=== PATIENT | female | born 1965 | race African-American/Black ===

== ENCOUNTER 2022-02-27 16:52 | Inpatient (IN) | payer MEDICAID, MEDICARE ==
[2022-02-27 17:44] LABS: #Lymphocytes 1.8 thou/uL (1.20-3.40); #Monocytes 0.7 thou/uL (0.11-0.59); #Neutrophils 3.3 thou/uL (1.40-6.50); %Basophils 0.7 % (0.0-1.0); %Eosinophils 0.1 % (0.0-10.0); %Lymphocytes 31.2 % (21.0-51.0); %Monocytes 11.7 % (0.0-10.0); %Neutrophils 56.3 % (42.0-75.0); Hemoglobin 11.1 g/dL (12.0-16.0); Mean Corpuscular HGB CONC 32.1 g/dL (32.0-36.0); Mean Corpuscular Hemoglobin 29.8 pg (27.0-31.0); Mean Corpuscular Volume 92.9 fL (78.0-98.0); Mean Platelet Volume 7.7 fL (7.4-10.4); Platelet Count 317 thou/uL (130-400); RBC Distribution Width 13.1 % (11.5-14.5); Red Blood Cell (RBC) Count 3.73 mill/uL (4.20-5.40); White Blood Cell (WBC) Count 5.8 thou/uL (4.8-10.8)
[2022-02-27 18:07] LABS: ALT (SGPT) 10 U/L (8-55); AST (SGOT) 14 U/L (5-34); Albumin 3.6 g/dL (3.5-5.0); Alkaline Phosphatase 113 U/L (40-110); Anion Gap 14 mmol/L (10-20); BUN (Urea Nitrogen) 13 mg/dL (9.8-20.1); Bilirubin, Total 0.4 mg/dL (0.2-1.2); Calc. Creatinine Clearance 0 mL/min (70-130); Calcium 8.4 mg/dL (7.8-10.44); Carbon Dioxide 21 mmol/L (22-29); Chloride 107 mmol/L (98-107); Globulin 2.8 g/dL (2.4-3.5); Glucose 176 mg/dL (70-105); Lipase 31 U/L (8-78); Potassium 4.1 mmol/L (3.5-5.1); Protein, Total 6.4 g/dL (6.0-8.3); Sodium 138 mmol/L (136-145)
[2022-02-27] MEDS ORDERED: Aspirin Chewable 81 MG TAB ONE (18:10)
[2022-02-27] MEDS ORDERED: Nitroglycerin 0.4 MG TAB 1 EACH ONE (18:10)
[2022-02-27] MEDS ORDERED: Nitroglycerin 0.4 MG TAB (25 Tab Bottle) SL PRN (20:30)
[2022-02-27] MEDS ORDERED: Enoxaparin Sodium 40 MG/0.4 ML SYRINGE SC SCH (20:30)
[2022-02-27] MEDS ORDERED: Dextrose 50% Abboject 50 ML SYRINGE SLOW IVP PRN (20:37)
[2022-02-27] MEDS ORDERED: Dextrose 5% in Water 1,000 ML IV PRN (20:37)
[2022-02-27] MEDS ORDERED: HumaLOG 300 UNITS/3 ML VIAL SC PRN ×2 (20:37)
[2022-02-27] MEDS ORDERED: Lidocaine 2% Viscous Solution 10 ML, Aluminum & Magnesium Hydroxide 30 ML SSW SCH (21:00)
[2022-02-27 21:14] VITALS: BMI 35.5
[2022-02-27 21:20] LABS: Troponin I Less than 0.010 ng/mL (< 0.028)
[2022-02-27] MEDS ORDERED: Insulin Glargine 30 UNITS/0.3 ML VIAL SC SCH (22:45)
[2022-02-27] MEDS ORDERED: Nitroglycerin 0.4 MG TAB (25 Tab Bottle) SL SCH (22:45)
[2022-02-27] MEDS ORDERED: Albuterol Sulfate 2.5 mg/3 ml Neb NEB PRN (22:48)
[2022-02-28 00:05] LABS: Troponin I Less than 0.010 ng/mL (< 0.028)
[2022-02-28 00:56] LABS: SARS-CoV-2 PCR by NAA Not Detected (NotDetected)
[2022-02-28 01:23] LABS: Bilirubin Negative (Negative); Blood, Urine Negative (Negative); Clarity Clear (Clear); Glucose, Urine (Dipstick) Normal (Negative); Ketone, Urine Negative (Negative); Leukocyte Negative Leu/uL (Negative); Nitrite Negative (Negative); Protein, Urine (Dipstick) Negative (Neg-Trace); Specific Gravity, Urine 1.019 (1.002-1.036); Urobilinogen Normal mg/dL (Less than 2)
[2022-02-28] MEDS: Acetaminophen 325 MG TAB PO PRN ×2 (02:26→18:08)
[2022-02-28 05:11] LABS: Hemoglobin A1c 6.3 % (4.0-6.0)
[2022-02-28 05:20] LABS: Cardiac Risk 2.6 (Less than 4.5)
[2022-02-28] MEDS: Mometasone 100 MCG/Formoterol 5 MCG 120 PUFF INHALER INH SCH ×2 (07:20→18:18)
[2022-02-28] MEDS ORDERED: Regadenoson 0.4 MG/5 ML SYRINGE ONE (08:41)
[2022-02-28] MEDS: Potassium Chloride 10 MEQ TAB PO SCH (09:17)
[2022-02-28] MEDS: Atorvastatin Calcium 40 MG TAB PO SCH (09:17)
[2022-02-28] MEDS: Losartan 25 MG TAB PO SCH (09:18)
[2022-02-28] MEDS: HumaLOG 300 UNITS/3 ML VIAL SC SCH ×3 (09:18→18:09)
[2022-02-28] MEDS: Aspirin 81 mg Enteric Coated Tablet PO SCH (09:18)
[2022-02-28] MEDS: Sucralfate 1 GM TAB PO SCH ×4 (09:18→21:16)
[2022-02-28] MEDS: Fluticasone Propionate Nasal Spray 16 gm Bottle NASAL SCH (09:18)
[2022-02-28] MEDS: Enoxaparin Sodium 40 MG/0.4 ML SYRINGE SC SCH (21:15)
[2022-02-28] MEDS: Insulin Glargine 30 UNITS/0.3 ML VIAL SC SCH (21:15)
[2022-03-01] MEDS: Mometasone 100 MCG/Formoterol 5 MCG 120 PUFF INHALER INH SCH ×2 (07:27→19:03)
[2022-03-01] MEDS ORDERED: Acetaminophen 500 MG TAB PO SCH (08:00)
[2022-03-01 09:52] LABS: ALT (SGPT) 11 U/L (8-55); AST (SGOT) 14 U/L (5-34); Alkaline Phosphatase 124 U/L (40-110); Anion Gap 14 mmol/L (10-20); BUN (Urea Nitrogen) 8 mg/dL (9.8-20.1); Bilirubin, Total 0.6 mg/dL (0.2-1.2); Calc. Creatinine Clearance 110 mL/min (70-130); Calcium 9.4 mg/dL (7.8-10.44); Carbon Dioxide 24 mmol/L (22-29); Chloride 106 mmol/L (98-107); Globulin 3.5 g/dL (2.4-3.5); Glucose 104 mg/dL (70-105); Potassium 4.3 mmol/L (3.5-5.1); Protein, Total 7.5 g/dL (6.0-8.3); Sodium 140 mmol/L (136-145)
[2022-03-01] MEDS: HumaLOG 300 UNITS/3 ML VIAL SC SCH ×3 (11:00→18:44)
[2022-03-01] MEDS: Fluticasone Propionate Nasal Spray 16 gm Bottle NASAL SCH (11:01)
[2022-03-01] MEDS: Sucralfate 1 GM TAB PO SCH ×4 (11:01→21:20)
[2022-03-01] MEDS: Atorvastatin Calcium 40 MG TAB PO SCH (11:05)
[2022-03-01] MEDS: Losartan 25 MG TAB PO SCH (11:05)
[2022-03-01] MEDS: Aspirin 81 mg Enteric Coated Tablet PO SCH (11:09)
[2022-03-01] MEDS: Potassium Chloride 10 MEQ TAB PO SCH (11:09)
[2022-03-01 12:10] LABS: #Lymphocytes 1.6 thou/uL (1.20-3.40); #Monocytes 0.4 thou/uL (0.11-0.59); #Neutrophils 2.1 thou/uL (1.40-6.50); %Basophils 0.7 % (0.0-1.0); %Eosinophils 0.2 % (0.0-10.0); %Lymphocytes 38.6 % (21.0-51.0); %Monocytes 10.2 % (0.0-10.0); %Neutrophils 50.4 % (42.0-75.0); Hemoglobin 12.6 g/dL (12.0-16.0); Mean Corpuscular HGB CONC 30.5 g/dL (32.0-36.0); Mean Corpuscular Hemoglobin 28.8 pg (27.0-31.0); Mean Corpuscular Volume 94.7 fL (78.0-98.0); Mean Platelet Volume 7.8 fL (7.4-10.4); Platelet Count 299 thou/uL (130-400); RBC Distribution Width 13.4 % (11.5-14.5); Red Blood Cell (RBC) Count 4.37 mill/uL (4.20-5.40); White Blood Cell (WBC) Count 4.2 thou/uL (4.8-10.8)
[2022-03-01] MEDS ORDERED: Communication Order-Pharmacy FS SCH (15:15)
[2022-03-01] MEDS: Benzonatate 100 MG CAP PO PRN (18:47)
[2022-03-01] MEDS: Acetaminophen 325 MG TAB PO PRN (19:17)
[2022-03-01] MEDS: Insulin Glargine 30 UNITS/0.3 ML VIAL SC SCH (21:19)
[2022-03-01] MEDS: Carvedilol 6.25 MG TAB PO SCH (21:19)
[2022-03-01] MEDS: Enoxaparin Sodium 40 MG/0.4 ML SYRINGE SC SCH (21:19)
[2022-03-02] MEDS ORDERED: Sodium Chloride 0.9% 500 ML IV SCH ×2 (00:01→01:00)
[2022-03-02] MEDS: Mometasone 100 MCG/Formoterol 5 MCG 120 PUFF INHALER INH SCH ×2 (07:50→19:03)
[2022-03-02] MEDS ORDERED: diphenhydrAMINE 50 MG/ML VIAL IVP SCH (08:45)
[2022-03-02] MEDS ORDERED: predniSONE 50 MG TAB PO SCH (08:45)
[2022-03-02] MEDS: Carvedilol 6.25 MG TAB PO SCH ×2 (09:34→20:47)
[2022-03-02] MEDS: Atorvastatin Calcium 40 MG TAB PO SCH (09:34)
[2022-03-02] MEDS: Aspirin 81 mg Enteric Coated Tablet PO SCH (09:34)
[2022-03-02] MEDS: Fluticasone Propionate Nasal Spray 16 gm Bottle NASAL SCH ×2 (09:36→09:39)
[2022-03-02] MEDS: Potassium Chloride 10 MEQ TAB PO SCH (09:36)
[2022-03-02] MEDS: Losartan 25 MG TAB PO SCH (09:36)
[2022-03-02] MEDS: Sucralfate 1 GM TAB PO SCH ×4 (09:37→20:47)
[2022-03-02] MEDS: Benzonatate 100 MG CAP PO PRN (09:43)
[2022-03-02] MEDS: Acetaminophen 325 MG TAB PO PRN ×2 (13:51→20:50)
[2022-03-02] MEDS ORDERED: Ondansetron PF 4 MG/2 ML Vial IVP PRN (18:32)
[2022-03-02] MEDS ORDERED: HumaLOG 300 UNITS/3 ML VIAL SC PRN ×2 (18:33)
[2022-03-02] MEDS: predniSONE 50 MG TAB PO SCH (20:47)
[2022-03-02] MEDS ORDERED: Calcium Carbonate 500 MG ChewTAB PO PRN (22:48)
[2022-03-02] MEDS ORDERED: Lactated Ringer's 500 ML IV SCH (23:00)
[2022-03-02] MEDS ORDERED: Promethazine HCl 25 MG in Sodium Chloride 0.9% 50 ML IVPB SCH (23:00)
[2022-03-02] MEDS ORDERED: Calcium Carbonate 500 MG ChewTAB PO SCH (23:00)
[2022-03-03 04:49] LABS: ALT (SGPT) 14 U/L (8-55); AST (SGOT) 16 U/L (5-34); Albumin 4.6 g/dL (3.5-5.0); Alkaline Phosphatase 132 U/L (40-110); Anion Gap 16 mmol/L (10-20); BUN (Urea Nitrogen) 8 mg/dL (9.8-20.1); Bilirubin, Total 0.6 mg/dL (0.2-1.2); Calc. Creatinine Clearance 104 mL/min (70-130); Calcium 10.5 mg/dL (7.8-10.44); Carbon Dioxide 24 mmol/L (22-29); Chloride 103 mmol/L (98-107); Globulin 4.2 g/dL (2.4-3.5); Glucose 209 mg/dL (70-105); Potassium 4.2 mmol/L (3.5-5.1); Protein, Total 8.8 g/dL (6.0-8.3); Sodium 139 mmol/L (136-145)
[2022-03-03 05:14] LABS: #Lymphocytes 0.9 thou/uL (1.20-3.40); #Monocytes 0.2 thou/uL (0.11-0.59); #Neutrophils 8.1 thou/uL (1.40-6.50); %Eosinophils 0.1 % (0.0-10.0); %Lymphocytes 9.8 % (21.0-51.0); %Monocytes 2.4 % (0.0-10.0); %Neutrophils 87.7 % (42.0-75.0); Hemoglobin 14.7 g/dL (12.0-16.0); Mean Corpuscular HGB CONC 30.7 g/dL (32.0-36.0); Mean Corpuscular Hemoglobin 29.4 pg (27.0-31.0); Mean Corpuscular Volume 95.8 fL (78.0-98.0); Mean Platelet Volume 8.1 fL (7.4-10.4); Platelet Count 349 thou/uL (130-400); RBC Distribution Width 13.4 % (11.5-14.5); White Blood Cell (WBC) Count 9.3 thou/uL (4.8-10.8)
[2022-03-03] MEDS: Carvedilol 6.25 MG TAB PO SCH ×2 (06:26→19:43)
[2022-03-03] MEDS: predniSONE 50 MG TAB PO SCH (06:26)
[2022-03-03] MEDS: Aspirin 81 mg Enteric Coated Tablet PO SCH (06:26)
[2022-03-03] MEDS: Losartan 25 MG TAB PO SCH (06:27)
[2022-03-03] MEDS: Potassium Chloride 10 MEQ TAB PO SCH (06:27)
[2022-03-03] MEDS ORDERED: Acetaminophen 500 MG TAB PO SCH (08:45)
[2022-03-03] MEDS ORDERED: diphenhydrAMINE 50 MG/ML VIAL IVP SCH (09:00)
[2022-03-03] MEDS: Sucralfate 1 GM TAB PO SCH ×4 (09:00→17:53)
[2022-03-03] MEDS: Atorvastatin Calcium 40 MG TAB PO SCH (09:01)
[2022-03-03] MEDS: HumaLOG 300 UNITS/3 ML VIAL SC PRN ×2 (09:01→17:55)
[2022-03-03] MEDS: Fluticasone Propionate Nasal Spray 16 gm Bottle NASAL SCH (09:02)
[2022-03-03] MEDS ORDERED: Promethazine HCl 25 MG/ML VIAL IM SCH (10:00)
[2022-03-03] MEDS: Mometasone 100 MCG/Formoterol 5 MCG 120 PUFF INHALER INH SCH ×2 (10:46→18:51)
[2022-03-03] MEDS ORDERED: Lidocaine 1% (PF) 30 ML VIAL ONE (11:25)
[2022-03-03] MEDS ORDERED: Midazolam HCl 2 mg/2 ml Vial ONE (12:17)
[2022-03-03] MEDS ORDERED: Sodium Chloride 0.9% 200 ML IV PRN (13:56)
[2022-03-03] MEDS ORDERED: Nitroglycerin 0.4 MG TAB (25 Tab Bottle) SL PRN (13:56)
[2022-03-03 16:51] VITALS: TEMP 97.7
[2022-03-03 19:43] VITALS: BP 158/74
[2022-03-03] MEDS: Acetaminophen 325 MG TAB PO PRN (19:43)
[2022-03-03] MEDS ORDERED: Insulin Glargine 30 UNITS/0.3 ML VIAL SC SCH (21:00)
== END 2022-03-03 20:00 | disposition home or self-care (01) | DRG 287 ==
LOC: ERS 16:52 → 2NO 19:20 → OBSVTOIN 03-01 11:01
PROVIDERS: ADMIT Family Medicine; ATTEND Family Medicine
PROC: 4A023N7 Measurement of Cardiac Sampling and Pressure, Left Heart, Percutaneous Approach (ICD-10-PCS; principal; 2022-03-03)
PROC: B2111ZZ Fluoroscopy of Multiple Coronary Arteries using Low Osmolar Contrast (ICD-10-PCS; 2022-03-03)
PROC: B2151ZZ Fluoroscopy of Left Heart using Low Osmolar Contrast (ICD-10-PCS; 2022-03-03)
DX: I25.119 Atherosclerotic heart disease of native coronary artery with unspecified angina pectoris (principal); I69.351 Hemiplegia and hemiparesis following cerebral infarction affecting right dominant side; E78.5 Hyperlipidemia, unspecified; G89.4 Chronic pain syndrome; N18.9 Chronic kidney disease, unspecified; G47.33 Obstructive sleep apnea (adult) (pediatric); J45.909 Unspecified asthma, uncomplicated; K21.9 Gastro-esophageal reflux disease without esophagitis; I12.9 Hypertensive chronic kidney disease with stage 1 through stage 4 chronic kidney disease, or unspecified chronic kidney disease; R05.9 Cough, unspecified; G43.909 Migraine, unspecified, not intractable, without status migrainosus; E11.22 Type 2 diabetes mellitus with diabetic chronic kidney disease; Z20.822 Contact with and (suspected) exposure to COVID-19; Z95.0 Presence of cardiac pacemaker; Z91.013 Allergy to seafood; Z88.5 Allergy status to narcotic agent; Z95.1 Presence of aortocoronary bypass graft; Z88.8 Allergy status to other drugs, medicaments and biological substances; Z79.51 Long term (current) use of inhaled steroids; Z79.899 Other long term (current) drug therapy; Z79.82 Long term (current) use of aspirin; Z90.710 Acquired absence of both cervix and uterus; Z79.4 Long term (current) use of insulin
CPT/HCPCS: 36415; 36416; 71045; 78452; 80053; 80061; 81003; 83036; 83690; 83880; 84443; 84484; 85025; 93005; 93010; 93017; 93459; 94760; 99152; 99153; A9500; J1200; J1650; J1815; J2001; J2250; J2405; J2550; J2785; J7030; J7120; J7512; U0003; U0005

== ENCOUNTER 2025-07-21 13:58 | Emergency (ER) | payer BC, MEDICARE ==
[2025-07-21 14:33] LABS: #Basophils 0.05 10x3/uL (0.0-0.2); #Eosinophils 0.07 10x3/uL (0.0-0.7); #Monocytes 0.66 10x3/uL (0.11-0.59); #Neutrophils 5.71 10x3/uL (1.40-6.50); %Basophils 0.6 % (0.0-1.0); %Eosinophils 0.8 % (0.0-10.0); %Lymphocytes 24.6 % (21.0-51.0); %Monocytes 7.6 % (0.0-10.0); %Neutrophils 65.9 % (42.0-75.0); Hematocrit 36.6 % (36.0-47.0); Hemoglobin 11.2 g/dL (12.0-16.0); Mean Corpuscular Hemoglobin 27.3 pg (27.0-31.0); Mean Corpuscular Volume 89.3 fL (78.0-98.0); Platelet Count 403 10x3/uL (130-400); Red Blood Cell (RBC) Count 4.10 mill/uL (4.20-5.40); White Blood Cell (WBC) Count 8.66 10x3/uL (4.8-10.8)
[2025-07-21] MEDS ORDERED: Heparin 10,000 UNITS/ 10 ML VIAL ONE (14:43)
[2025-07-21 14:46] LABS: INR-International Normal Ratio 1.0; Prothrombin Time 13.6 sec (12.0-14.7)
[2025-07-21 14:47] LABS: PTT 33.6 sec (22.9-36.1)
[2025-07-21 14:55] LABS: ALT (SGPT) 9 U/L (Less than 34); AST (SGOT) 14 U/L (11-34); Albumin 3.4 g/dL (3.1-4.5); Alkaline Phosphatase 143 U/L (40-110); Anion Gap 16 mmol/L (10-20); BUN (Urea Nitrogen) 17 mg/dL (9.8-20.1); Bilirubin, Total 0.3 mg/dL (0.3-1.2); Calc. Creatinine Clearance 0 mL/min (70-130); Calcium 9.0 mg/dL (7.8-10.44); Carbon Dioxide 24 mmol/L (22-29); Chloride 102 mmol/L (98-107); Globulin 3.4 g/dL (2.4-3.5); Glucose 204 mg/dL (70-105); Potassium 3.7 mmol/L (3.5-5.1); Sodium 138 mmol/L (136-145)
== END 2025-07-21 14:53 | disposition short-term general hospital (02) ==
LOC: ERS 13:58
DX: I21.19 ST elevation (STEMI) myocardial infarction involving other coronary artery of inferior wall (principal); I24.9 Acute ischemic heart disease, unspecified; I10 Essential (primary) hypertension; I25.10 Atherosclerotic heart disease of native coronary artery without angina pectoris; E11.9 Type 2 diabetes mellitus without complications; Z95.1 Presence of aortocoronary bypass graft; Z95.0 Presence of cardiac pacemaker; Z79.899 Other long term (current) drug therapy; Z79.4 Long term (current) use of insulin
CPT/HCPCS: 71045; 80053; 84484; 85025; 85610; 85730; 93005; 94760; 96374; 96375; J1644

== ENCOUNTER 2025-09-16 12:08 | Emergency (ER) | payer BC, MEDICAID, MEDICARE ==
[2025-09-16 15:29] LABS: #Basophils 0.04 10x3/uL (0.0-0.2); #Eosinophils 0.07 10x3/uL (0.0-0.7); #Monocytes 0.49 10x3/uL (0.11-0.59); #Neutrophils 4.89 10x3/uL (1.40-6.50); %Basophils 0.5 % (0.0-1.0); %Eosinophils 0.9 % (0.0-10.0); %Lymphocytes 26.6 % (21.0-51.0); %Monocytes 6.5 % (0.0-10.0); %Neutrophils 65.2 % (42.0-75.0); Hematocrit 34.5 % (36.0-47.0); Hemoglobin 10.7 g/dL (12.0-16.0); Mean Corpuscular Hemoglobin 27.8 pg (27.0-31.0); Mean Corpuscular Volume 89.6 fL (78.0-98.0); Platelet Count 299 10x3/uL (130-400); Red Blood Cell (RBC) Count 3.85 mill/uL (4.20-5.40); White Blood Cell (WBC) Count 7.51 10x3/uL (4.8-10.8)
[2025-09-16 15:45] LABS: ALT (SGPT) 12 U/L (Less than 34); AST (SGOT) 20 U/L (11-34); Albumin 2.9 g/dL (3.1-4.5); Alkaline Phosphatase 158 U/L (40-110); Anion Gap 15 mmol/L (10-20); BUN (Urea Nitrogen) 23 mg/dL (9.8-20.1); Bilirubin, Total 0.3 mg/dL (0.3-1.2); Calc. Creatinine Clearance 0 mL/min (70-130); Calcium 8.8 mg/dL (7.8-10.44); Carbon Dioxide 26 mmol/L (22-29); Chloride 104 mmol/L (98-107); Globulin 3.5 g/dL (2.4-3.5); Glucose 143 mg/dL (70-105); Lipase 14 U/L (8-78); Magnesium 1.8 mg/dL (1.6-2.6); Potassium 4.5 mmol/L (3.5-5.1); Sodium 140 mmol/L (136-145)
[2025-09-16 17:00] LABS: CAUTI Indications for Culture Pelvic or flank pain; Glucose, Urine (Dipstick) Normal (Negative); Leukocyte Negative Leu/uL (Negative); Protein, Urine (Dipstick) Negative (Neg-Trace); Specific Gravity, Urine 1.026 (1.002-1.036); WBC/HPF 0-3 HPF (0-3)
[2025-09-16 17:01] LABS: Bacteria/HPF 1+ HPF (None Seen)
[2025-09-16 17:02] LABS: Urine Culture Reflex No No
== END 2025-09-16 17:55 | disposition home or self-care (01) ==
LOC: ERS 12:08
DX: R11.2 Nausea with vomiting, unspecified (principal); R10.9 Unspecified abdominal pain; E11.9 Type 2 diabetes mellitus without complications; I10 Essential (primary) hypertension; Z86.73 Personal history of transient ischemic attack (TIA), and cerebral infarction without residual deficits
CPT/HCPCS: 71250; 74177; 80053; 81001; 83605; 83690; 83735; 84484; 85025; 87040; 87086; 93005